=== PATIENT | male | born 1990 ===

== ENCOUNTER 2016-06-18 02:33 | Inpatient (IN) | payer MEDICAID ==
[2016-06-18] MEDS ORDERED: ONDANSETRON 4 MG/2ML 2 ML VIAL ONE (02:49)
[2016-06-18] MEDS ORDERED: SODIUM CHLORIDE 0.9% 1,000 ML ONE ×2 (02:49→03:51)
[2016-06-18 03:04] LABS: ABSOLUTE NEUTROPHIL COUNT 25.5 K/mm3 (1.8-7.7); BASO # 0.1 K/mm3 (0.0-0.2); BASO % 0.2 % (0.2-1.0); HEMATOCRIT 54.9 % (32.0-52.0); HEMOGLOBIN 18.6 gm/l (14.0-18.0); IMM NEUT # 0.2 K/mm3 (0-0.2); IMM NEUT% 0.6 % (0-1); LYMPH # 1.6 (1.0-4.8); LYMPH % 5.6 % (15-45); MEAN CELL VOLUME 91.3 fl (80.0-94.0); MEAN CORPUSCULAR HEMOGLOBIN 30.9 pg (27.0-31.0); MEAN CORPUSCULAR HGB CONC 33.9 g/dl (33.0-37.0); MEAN PLATELET VOLUME 10.1 fl (7.4-10.4); MONO % 6.7 % (4-12); NEUT % 86.9 % (43-75); PLATELET COUNT 513 K/mm3 (130-400); RED CELL DISTRIBUTION WIDTH 13.8 % (11.5-14.5)
[2016-06-18 03:23] LABS: ALB/GLOB RATIO 1.4 (>1.0); ALBUMIN 6.3 gm/dL (3.5-5.7); BAND 2 % (0-10); BASOPHIL 0 % (0-1); CALCIUM 9.9 mg/dL (8.6-10.3); EOSINOPHIL 0 % (1-3); LYMPHOCYTE 5 % (15-45); MAGNESIUM 2.7 mg/dL (1.9-2.7); MONOCYTE 5 % (4-12); NEUTROPHILS 88 % (43-75); PLATELET ESTIMATE NORMAL (NORMAL); TOTAL CELLS COUNTED 100
[2016-06-18 04:33] LABS: SPECIFIC GRAVITY 1.025 (1.001-1.030); URINE APPEARANCE CLOUDY; URINE BILIRUBIN 1+ (NEGATIVE); URINE BLOOD 4+ (NEGATIVE); URINE COLOR DARK YELLOW; URINE GLUCOSE (UA) NEGATIVE (NEGATIVE); URINE LEUKOCYTE ESTERASE NEGATIVE (NEGATIVE); URINE NITRITE NEGATIVE (NEGATIVE); URINE PROTEIN 2+ (NEGATIVE); URINE UROBILINOGEN NORMAL (0-1 mg/dl)
[2016-06-18 04:36] LABS: URINE AMORPHOUS SEDIMENT 2+; URINE BACTERIA 0; URINE CASTS FEW GRANULAR /lpf; URINE EPITHELIAL CELLS FEW /hpf; URINE WBC 0-1 /hpf
[2016-06-18 04:37] LABS: URINE MUCUS 2+
[2016-06-18 04:39] LABS: AMPHETAMINES/METHAMPHETAMINES POSITIVE (NEGATIVE); COCAINE NEGATIVE (NEGATIVE); MARIJUANA POSITIVE (NEGATIVE); METHADONE NEGATIVE (NEGATIVE); OPIATES NEGATIVE (NEGATIVE); TRICYCLIC ANTIDEPRESSANTS NEGATIVE (NEGATIVE)
[2016-06-18 04:43] VITALS: BMI 21.4
[2016-06-18] MEDS ORDERED: PNEUMOCOCCAL 23-VAL P-SAC VAC 0.5 ML VIAL SUB-Q V ONE (04:53)
[2016-06-18] MEDS ORDERED: ONDANSETRON 4 MG/2ML 2 ML VIAL IV PRN (05:07)
[2016-06-18] MEDS ORDERED: PUMP TUBING ONE (05:20)
[2016-06-18] MEDS ORDERED: SODIUM CHLORIDE 0.9% FLUSH 10 ML ONE ×2 (05:21→05:37)
[2016-06-18] MEDS: SODIUM CHLORIDE 0.9% 1,000 ML IV SCH ×3 (05:29→18:41)
[2016-06-18] MEDS: PANTOPRAZOLE SODIUM 40 MG VIAL IV SCH (05:29)
--- NOTE | 2016-06-18 07:19 | RAD ---
ABDOMEN 2 VIEWS W PA CHEST HISTORY: Vomiting. COMPARISONS: None. FINDINGS: Supine and upright views of the abdomen and a single view chest were obtained demonstrating air within nondilated large bowel. The abdominal bowel gas pattern is unremarkable. No evidence of free intraperitoneal air is observed. The heart size is appropriate. The lung mas. Be clear. IMPRESSION: 1. An unremarkable abdominal bowel gas pattern. No evidence of free intraperitoneal air is observed. 2. A negative single view chest.
[2016-06-18] MEDS ORDERED: BISACODYL 10 MG SUP PR PRN (07:56)
[2016-06-18] MEDS ORDERED: SODIUM CHLORIDE 0.9% 100 ML IV PRN (07:56)
[2016-06-18] MEDS ORDERED: ACETAMINOPHEN 325 MG TABLET PO PRN (07:56)
[2016-06-18] MEDS ORDERED: MENTHOL/CETYLPYRD 1 EACH LOZENGE PO PRN (07:56)
[2016-06-18] MEDS ORDERED: BLISTEX LIPSTICK 1 EACH TP PRN (07:56)
[2016-06-18] MEDS ORDERED: MAGNESIUM HYDROXIDE 30 ML UDCUP PO PRN (07:56)
[2016-06-18] MEDS ORDERED: BISACODYL 5 MG TABLET.EC PO PRN (07:56)
--- NOTE | 2016-06-18 09:42 | HP ---
Lauro Valencia ADMIT DATE: 06/18/2016 CHIEF COMPLAINT: Nausea, vomiting, and dehydration. HISTORY OF PRESENT ILLNESS: Lauro is a 24-year-old otherwise healthy male. He does use methamphetamine about once a week as well as tobacco and occasional marijuana. His last meth use was approximately 48 hours prior to this admission. About 24 to 48 hours ago he had the onset of nausea and vomiting that was fairly severe. He was vomiting 8 to 10 times a day. He actually presented to the emergency room at [facility] and was treated with IV fluid rehydration and given prescription for Promethazine. He apparently miss placed this prescription and had persistent nausea and vomiting. He then presented to the emergency room here at [place] [facility] in the industrial custodian hours of 06/18/2016. In the emergency room he was worked up and found to be significantly dehydrated with marked acute kidney injury with a creatinine greater than 7. He was treated with IV fluid rehydration in the emergency room as well as Zofran which did seem to help his nausea. He was subsequently admitted to the hospitalist service for further treatment. REVIEW OF SYSTEMS: No headache. No visual symptoms. No difficulty swallowing. No chest pain or shortness of breath. No cough. He does have the nausea and vomiting as noted above. He has had some coffee ground like emesis on the last few emesis, but none before. He has some abdominal wall type pain from all the retching, but no other abdominal pain. No diarrhea. No change in bowel or bladder habits. No extremity weakness, numbness, tingling, or swelling. No new skin lesions or rashes. PAST MEDICAL HISTORY: Some mild asthma in the past not requiring treatment. PAST SURGICAL HISTORY: None. ALLERGIES: None. CURRENT MEDICATIONS: None other than the promethazine prescription he received from [facility] yesterday which he missed placed and has not taken. SOCIAL HISTORY: He does use methamphetamine about once a week, last use was about 48 hours ago. He uses marijuana occasionally. He drinks about one beer a day and smokes about 1 to 2 packs of cigarettes a day. He lives with his mom and step father. He is unemployed. FAMILY HISTORY: Mother has heart trouble. There is no other renal disease or other family history. OBJECTIVE: VITAL SIGNS: Temperature 98.1, pulse 84, blood pressure 119/56, respirations 16, O2 sat 96% on room air. GENERAL: This is a well-developed, well-nourished young male. At the time I examined him he was alert and pleasant. He is feeling significantly better after being rehydrated in the emergency room and receiving Zofran therapy. He is in no distress what so ever. HEENT: Normocephalic. TM's are clear. Extraocular movements intact. Oropharynx is dry with no lesions. NECK: Supple. LUNGS: Clear. HEART: Regular. ABDOMEN: Soft, nondistended. No organomegaly. He has some very mild diffuse tenderness and is felt to be mostly abdominal wall tenderness. No rebound. No guarding. EXTREMITIES: With no edema. SKIN: No rashes. LABORATORY: CBC with a white count elevated at 29.4 with 88% neutrophils, 2% bands, 5% lymphs. Hemoglobin 18.6, hematocrit 54.9, platelets of 513. Chemistry panel with sodium of 132, potassium 4.5, chloride 83, carbon dioxide 17, BUN 73, creatinine 7.3, glucose of 166, calcium 9.9, magnesium 2.7, total bilirubin 1.3, AST 28, ALT 18, alk phos of 125, total protein 10.7, lipase of 9. Lactate is normal at 1.4. Urinalysis with 2+ protein, 4+ blood, 1+ bilirubin, negative leukocyte esterase, and negative nitrite. Urine tox screen is positive for meth and positive for marijuana. Influenza A and B are both negative. DIAGNOSTICS: Chest x-ray and abdominal and upright chest x-rays are all unremarkable with no acute findings. ASSESSMESNT: 1. Intractable nausea and vomiting. 2. Severe dehydration secondary to above. 3. Acute kidney injury secondary to above. 4. Methamphetamine abuse. 5. Moderate alcohol use with no history of withdraw. PLAN: He is admitted to the floor. He is already doing significant better with significant rehydration in the emergency room. We will continue with aggressive rehydration and supportive care. We will recheck lab work in the morning. I am going to hold off a more thorough workup at this time as I anticipate his acute kidney injury is all prerenal. If he does not get a marked improvement in his kidney function with hydration then we will consider more aggressive workup. We will obtain a social work consult to deal with the substance abuse issues. He does drink minimal to moderate amount of alcohol with no history of withdraw. I do not think he is at particular risk for alcohol withdraw and so we will hold off on the formal CIWA protocol. We will observe obviously for this and adjust our treatment as necessary. Deep venous thrombosis prophylaxis is not indicated as the patient is fully ambulatory. Further care is dictated by clinical course. JOB: [id number]
[2016-06-19] MEDS: SODIUM CHLORIDE 0.9% 1,000 ML IV SCH ×2 (01:20→07:40)
[2016-06-19] MEDS: PANTOPRAZOLE SODIUM 40 MG VIAL IV SCH (05:31)
[2016-06-19 05:55] LABS: ABSOLUTE NEUTROPHIL COUNT 3.8 K/mm3 (1.8-7.7); BASO % 0.4 % (0.2-1.0); EOS # 0.1 (0.0-0.5); EOS % 1.4 % (0.9-2.9); HEMATOCRIT 38.1 % (32.0-52.0); HEMOGLOBIN 12.3 gm/l (14.0-18.0); IMM NEUT% 0.2 % (0-1); LYMPH # 4.2 (1.0-4.8); MEAN CELL VOLUME 97.4 fl (80.0-94.0); MEAN CORPUSCULAR HEMOGLOBIN 31.5 pg (27.0-31.0); MEAN CORPUSCULAR HGB CONC 32.3 g/dl (33.0-37.0); MEAN PLATELET VOLUME 10.4 fl (7.4-10.4); MONO # 1.3 (0.0-0.8); MONO % 13.9 % (4-12); NEUT % 40.1 % (43-75); PLATELET COUNT 280 K/mm3 (130-400); RED CELL DISTRIBUTION WIDTH 13.7 % (11.5-14.5)
[2016-06-19 06:01] LABS: ALB/GLOB RATIO 1.5 (>1.0); ALBUMIN 3.7 gm/dL (3.5-5.7); CALCIUM 8.5 mg/dL (8.6-10.3)
[2016-06-19 08:10] VITALS: BP 97/50
--- NOTE | 2016-06-19 08:22 | PDOC43 ---
- Subjective Chief Complaint: vomiting Sleeping soundly, mother c/o that he normally cannot sleep. Hungry and eating normal diet without vomiting. - Objective Vital Signs Temperature 98.5 F 06/19/16 08:00 Pulse Rate 52 06/19/16 08:00 Respiratory Rate 16 06/19/16 08:00 Blood Pressure 97/50 06/19/16 08:00 O2 Saturation by Pulse Oximetry 97 06/19/16 08:00 Oxygen Delivery Method Room Air Oxygen Flow Rate 0 Intake and Output 06/18/16 06/19/16 06/20/16 06:59 06:59 06:59 Intake Total 5165 Output Total 2275 Balance 2890 General: Alert, No Acute Distress HEENT: Mucous membr. moist/pink Lungs: Clear to Auscultation Bilaterally Cardiovascular: Regular Rate and Rhythm Abdomen: Soft, Normal Bowel Sounds, No Tenderness, No Masses Extremities: Normal Pulses, No Edema Skin: Normal Color Laboratory 06/19/16 05:20 06/19/16 05:20 06/19/16 05:20 RBC 3.91 L MCV 97.4 H MCH 31.5 H MCHC 32.3 L BUN 26 H Calcium 8.5 L Phosphorus 1.8 L Total Bilirubin 1.7 H Total Protein 6.2 L Current Medications: Current meds reviewed in EMR. - Problems: Assessment/Plan (1) Acute renal failure Qualifiers: Acute renal failure type: unspecified Qualifier Code: (N17.9) Acute kidney failure, unspecified Status: AcuteAssessment/Plan: Due to dehydration from vomiting. Resolved with hydration. (2) Drug abuse Status: ChronicAssessment/Plan: Cessation discussed with patient and mother. VTE Prophylaxis: not indicated Disposition: discharge home
[2016-06-19 10:51] LABS: PH,URINE 6.5 (5.0-8.0); SPECIFIC GRAVITY 1.015 (1.001-1.030); URINE BILIRUBIN NEGATIVE (NEGATIVE); URINE BLOOD NEGATIVE (NEGATIVE); URINE GLUCOSE (UA) 2+ (NEGATIVE); URINE LEUKOCYTE ESTERASE NEGATIVE (NEGATIVE); URINE NITRITE NEGATIVE (NEGATIVE); URINE PROTEIN NEGATIVE (NEGATIVE); URINE UROBILINOGEN NORMAL (0-1 mg/dl)
[2016-06-19 10:52] LABS: URINE APPEARANCE CLEAR; URINE COLOR YELLOW
== END 2016-06-19 12:10 | disposition home or self-care (01) | DRG 641 ==
LOC: ED 02:33 → MS 03:58
PROVIDERS: ADMIT Family Medicine; ATTEND Family Medicine
DX: E86.0 Dehydration (principal); N17.9 Acute kidney failure, unspecified; F15.10 Other stimulant abuse, uncomplicated; Z72.89 Other problems related to lifestyle; F12.20 Cannabis dependence, uncomplicated